=== PATIENT | female | born 1990 | race Caucasian/White ===

== ENCOUNTER 2018-12-27 17:17 | Emergency (ER) | payer BC, MEDICAID, OTHER ==
[2018-12-27] MEDS ORDERED: Ketorolac 60 MG/2 ML SDV IM ONE (17:41)
[2018-12-27] MEDS ORDERED: SUMAtriptan 6 MG/0.5 ML SDV SUBCUT ONE (18:19)
--- NOTE | 2018-12-27 18:21 | EDM.PDOC ---
ED HPI GENERAL MEDICAL PROBLEM - General Stated Complaint: POST CONCUSION HEADACH, FAINTED Time Seen by Provider: 12/27/18 17:17 Source of Information: Reports: Patient History Limitations: Reports: No Limitations - History of Present Illness INITIAL COMMENTS - FREE TEXT/NARRATIVE: 28 h.o.w.f with bipolar disorder came to the ED with a friend to the ed because of bilt temp headache, Photophobia and neck pain. Pt denies trauma. She is currently withe her in an off/on relation ship. She works during the day and is not able to sleep at night. All day long, she drinks energy drinks to keep her awake at work. Pt denies any trauma. Pt has seen a psychiatrist in the past but did not F/U for a while and did not not the the meds recommended. No N/V/D no dizziness. No other acute med issues. BP 140/94 RR 16 Pulse ox 100 % Pulse 112 Temp 36.4 Onset Date: 12/27/18 Onset Time: 08:00 Duration: Week(s):, Intermittent Location: Reports: Generalized Quality: Reports: Dull, Same as Previous Episode Severity: Moderate Improves with: Reports: Medication Worsens with: Reports: Other (stress) Context: Reports: Other (H/O bipolar disorder. 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: , 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 Psychiatric History: Reports: Anxiety, Depression Other Psychiatric History: dx at the age of 14/15 - Infectious Disease History Infectious Disease History: Reports: Chicken Pox - Past Surgical History Head Surgeries/Procedures: Reports: None HEENT Surgical History: Reports: None Female Surgical History: Reports: None Social & Family History - Family History Family Medical History: Noncontributory Cardiac: Reports: Other (See Below) Other Cardiac Family History: Stroke Respiratory: Reports: Asthma OBGYN: Reports: Oncologic: Reports: Other (See Below) Other Oncologic Family History: unk cancer - Caffeine Use Caffeine Use: Reports: Soda ED ROS GENERAL - Review of Systems Review Of Systems: See Below Constitutional: Reports: No Symptoms HEENT: Reports: No Symptoms Respiratory: Reports: No Symptoms Cardiovascular: Reports: No Symptoms Endocrine: Reports: No Symptoms GI/Abdominal: Reports: No Symptoms : Reports: No Symptoms Musculoskeletal: Reports: Neck Pain, Muscle Pain Skin: Reports: No Symptoms Neurological: Reports: Headache, Other (photophobia) Psychiatric: Reports: Anxiety, Depression Hematologic/Lymphatic: Reports: No Symptoms Immunologic: Reports: No Symptoms - Physical Exam Exam: See Below Exam Limited By: No Limitations General Appearance: Alert, WD/WN, Anxious, Mild Distress Eye Exam: Bilateral Eye: Normal Inspection Ears: Normal External Exam Nose: Normal Inspection, Normal Mucosa Throat/Mouth: Normal Inspection, Normal Lips, Normal Voice, No Airway Compromise Head Exam: Atraumatic, Normocephalic Neck: Normal Inspection, Supple, Non-Tender, Full Range of Motion Respiratory/Chest: No Respiratory Distress, Lungs Clear, Normal Breath Sounds Cardiovascular: Normal Peripheral Pulses, Regular Rate, Rhythm, No Edema, No Gallop GI/Abdominal: Normal Bowel Sounds, Soft, Non-Tender, No Organomegaly, No Abnormal Bruit, No Mass, Pelvis Stable (Female) Exam: Deferred Rectal (Female) Exam: Deferred Neuro Exam (Abbreviated): Alert, Oriented, CN II-XII Intact, Normal Cognition, Normal Gait, No Motor/Sensory Deficits Back Exam: Normal Inspection, Full Range of Motion Extremities: Normal Inspection, Normal Range of Motion, Non-Tender, Normal Capillary Refill Psychiatric: Anxious, Depressed Mood, Tearful Skin Exam: Warm, Dry, Intact, Normal Color, No Rash Course - Vital Signs Text/Narrative:: 28 h.o.w.f with bipolar disorder came to the ED with a friend to the ed because of bilt temp headache, Photophobia and neck pain. Pt denies trauma. She is currently withe her in an off/on relation ship. She works during the day and is not able to sleep at night. All day long, she drinks energy drinks to keep her awake at work. Pt denies any trauma. Pt has seen a psychiatrist in the past but did not F/U for a while and did not not the the meds recommended. No N/V/D no dizziness. No other acute med issues. BP 140/94 RR 16 Pulse ox 100 % Pulse 112 Temp 36.4 28 y.o.Pt Bipolar patient, neck pain and H/A worst ever, mentioned she has suicidal ideation as well Imaging: CT neck: Reverse lordosis. CT head: NAD as per RAD Labs: BMP neg UA neg UDS neg Impression: Tension H/A, neck sprain, H/O Bipolar disorder Tx: Imitrex, Norflex, pt took Motrin INFORMATION ARCHITECT 7.52 pm Consultation: [facility] tele psych: Anxiety and depression, Not suicidal, can stay with a friend tonight, should F/U with a local Psych service in AM Reexam: Pt improved, feels ready to go home with her friend in the Waiting room. Plan: D/C with instructions Last Recorded V/S: Last Vital Signs Temp 36.7 C 12/27/18 19:58 Pulse 78 12/27/18 20:42 Resp 18 12/27/18 20:42 BP 113/83 12/27/18 20:42 Pulse Ox 100 12/27/18 20:42 - Orders/Labs/Meds Orders: Active Orders 24 hr Category Date Time Status Cervical Spine wo Cont [CT] Stat Exams 12/27/18 17:40 Taken Head wo Cont [CT] Stat Exams 12/27/18 17:40 Taken Labs: Laboratory Tests 12/27/18 12/27/18 12/27/18 Range/Units 17:56 17:56 17:56 Sodium (135-145) mmol/L Potassium (3.5-5.3) mmol/L Chloride (100-110) mmol/L Carbon Dioxide (21-32) mmol/L BUN (7-18) mg/dL Creatinine (0.55-1.02) mg/dL Est Cr Clr Drug Dosing Estimated GFR (MDRD) (>60) BUN/Creatinine Ratio (9-20) Glucose (80-116) mg/dL Calcium (8.6-10.2) mg/dL Magnesium (1.8-2.5) mg/dL Urine Color Yellow (YELLOW) Urine Appearance Clear (CLEAR) Urine pH 5.0 (5.0-6.5) Ur Specific [place] 1.005 L (1.010-1.025) Urine Protein Negative (NEGATIVE) mg/dL Urine Glucose (UA) Normal (NORMAL) mg/dL Urine Ketones Negative (NEGATIVE) mg/dL Urine Occult Blood Negative (NEGATIVE) Urine Nitrite Negative (NEGATIVE) Urine Bilirubin Negative (NEGATIVE) Urine Urobilinogen Normal (NEGATIVE) mg/dL Ur Leukocyte Esterase Negative (NEGATIVE) Urine RBC 0-5 (0-5) Urine WBC 0-5 (0-5) Ur Squamous Epith Cells Occasional (NS,R,O) Urine Bacteria Few H (NS) Urine HCG, Qual Negative (NEGATIVE) Salicylates (<2.8) mg/dL Urine Opiates Screen Negative (NEGATIVE) Ur Oxycodone Screen Negative (NEGATIVE) Ur Propoxyphene Screen Negative (NEGATIVE) Acetaminophen (<2) ug/mL Ur Barbituates Screen Negative (NEGATIVE) Ur Tricyclics Screen Negative (NEGATIVE) Ur Phencyclidine Scrn Negative (NEGATIVE) Ur Amphetamine Screen Negative (NEGATIVE) Urine MDMA Screen Negative (NEGATIVE) U Benzodiazepines Scrn Negative (NEGATIVE) U Cocaine Metab Screen Negative (NEGATIVE) U Marijuana (THC) Screen Negative (NEGATIVE) Ethyl Alcohol (<0.03) % 12/27/18 12/27/18 12/27/18 Range/Units 18:32 18:32 18:32 Sodium 139 (135-145) mmol/L Potassium 3.8 (3.5-5.3) mmol/L Chloride 103 (100-110) mmol/L Carbon Dioxide 27 (21-32) mmol/L BUN 12 (7-18) mg/dL Creatinine 0.9 (0.55-1.02) mg/dL Est Cr Clr Drug Dosing TNP Estimated GFR (MDRD) > 60 (>60) BUN/Creatinine Ratio 13.3 (9-20) Glucose 82 (80-116) mg/dL Calcium 9.1 (8.6-10.2) mg/dL Magnesium (1.8-2.5) mg/dL Urine Color (YELLOW) Urine Appearance (CLEAR) Urine pH (5.0-6.5) Ur Specific [place] (1.010-1.025) Urine Protein (NEGATIVE) mg/dL Urine Glucose (UA) (NORMAL) mg/dL Urine Ketones (NEGATIVE) mg/dL Urine Occult Blood (NEGATIVE) Urine Nitrite (NEGATIVE) Urine Bilirubin (NEGATIVE) Urine Urobilinogen (NEGATIVE) mg/dL Ur Leukocyte Esterase (NEGATIVE) Urine RBC (0-5) Urine WBC (0-5) Ur Squamous Epith Cells (NS,R,O) Urine Bacteria (NS) Urine HCG, Qual (NEGATIVE) Salicylates 2.8 (<2.8) mg/dL Urine Opiates Screen (NEGATIVE) Ur Oxycodone Screen (NEGATIVE) Ur Propoxyphene Screen (NEGATIVE) Acetaminophen < 2 L (<2) ug/mL Ur Barbituates Screen (NEGATIVE) Ur Tricyclics Screen (NEGATIVE) Ur Phencyclidine Scrn (NEGATIVE) Ur Amphetamine Screen (NEGATIVE) Urine MDMA Screen (NEGATIVE) U Benzodiazepines Scrn (NEGATIVE) U Cocaine Metab Screen (NEGATIVE) U Marijuana (THC) Screen (NEGATIVE) Ethyl Alcohol < 0.03 (<0.03) % 12/27/18 Range/Units 18:32 Sodium (135-145) mmol/L Potassium (3.5-5.3) mmol/L Chloride (100-110) mmol/L Carbon Dioxide (21-32) mmol/L BUN (7-18) mg/dL Creatinine (0.55-1.02) mg/dL Est Cr Clr Drug Dosing Estimated GFR (MDRD) (>60) BUN/Creatinine Ratio (9-20) Glucose (80-116) mg/dL Calcium (8.6-10.2) mg/dL Magnesium 2.1 (1.8-2.5) mg/dL Urine Color (YELLOW) Urine Appearance (CLEAR) Urine pH (5.0-6.5) Ur Specific [place] (1.010-1.025) Urine Protein (NEGATIVE) mg/dL Urine Glucose (UA) (NORMAL) mg/dL Urine Ketones (NEGATIVE) mg/dL Urine Occult Blood (NEGATIVE) Urine Nitrite (NEGATIVE) Urine Bilirubin (NEGATIVE) Urine Urobilinogen (NEGATIVE) mg/dL Ur Leukocyte Esterase (NEGATIVE) Urine RBC (0-5) Urine WBC (0-5) Ur Squamous Epith Cells (NS,R,O) Urine Bacteria (NS) Urine HCG, Qual (NEGATIVE) Salicylates (<2.8) mg/dL Urine Opiates Screen (NEGATIVE) Ur Oxycodone Screen (NEGATIVE) Ur Propoxyphene Screen (NEGATIVE) Acetaminophen (<2) ug/mL Ur Barbituates Screen (NEGATIVE) Ur Tricyclics Screen (NEGATIVE) Ur Phencyclidine Scrn (NEGATIVE) Ur Amphetamine Screen (NEGATIVE) Urine MDMA Screen (NEGATIVE) U Benzodiazepines Scrn (NEGATIVE) U Cocaine Metab Screen (NEGATIVE) U Marijuana (THC) Screen (NEGATIVE) Ethyl Alcohol (<0.03) % Meds: Medications Discontinued Medications Generic Name Dose Route Start Last Admin Trade Name Freq PRN Reason Stop Dose Admin Ketorolac Tromethamine 60 mg 12/27/18 17:41 12/27/18 18:20 Toradol IM 12/27/18 17:42 Not Given ONETIME ONE Orphenadrine Citrate 60 mg 12/27/18 18:52 12/27/18 19:31 Norflex IM 12/27/18 18:53 60 mg ONETIME STA Administration Sumatriptan Succinate 6 mg 12/27/18 18:19 12/27/18 18:24 Imitrex SUBCUT 12/27/18 18:20 6 mg ONETIME ONE Administration Departure - Departure Time of Disposition: 20:39 Disposition: Home, Self-Care 01 Condition: Good Clinical Impression: Tension headache Sprain, neck Qualifiers: Encounter type: subsequent encounter Qualified Code(s): S13.9XXD - Sprain of joints and ligaments of unspecified parts of neck, subsequent encounter - Discharge Information Prescriptions: Orphenadrine [Norflex] 100 mg PO BID PRN #16 tab PRN Reason: neck pain Instructions: Orphenadrine injection, Tension Headache, Adult Referrals: Kyler Matta MD [Primary Care Provider] - Forms: ED Return to Work/School Form Additional Instructions: Please f/u with your PMD in am in order to be referred to Neurologist, Take Norflex for neck spasm as recommended, Motrin 600 mg with food every 6 hours, please come back if your symptoms get worse acutely. [place] unit [phone] - My Orders Last 24 Hours: My Active Orders 12/27/18 17:40 Cervical Spine wo Cont [CT] Stat Head wo Cont [CT] Stat - Assessment/Plan Last 24 Hours: My Active Orders 12/27/18 17:40 Cervical Spine wo Cont [CT] Stat Head wo Cont [CT] Stat
[2018-12-27 18:55] LABS: ACETAMINOPHEN < 2 ug/mL (<2)
[2018-12-27 22:37] VITALS: BP 113/83
--- NOTE | 2018-12-28 11:13 | CT ---
INDICATION: Trauma, fall one week ago, temporal/frontal headache radiates to back of head, midline to right side neck pain. CT CERVICAL SPINE WITHOUT CONTRAST: Spiral 2.5 mm axial sections were obtained through the cervical spine with sagittal and coronal reconstructions, 12/27/18 - no comparisons. Total exam DLP = 293.08 mGy-cm. The odontoid, atlas, and axis appear to be intact. Vertebral body and disk heights were maintained. Reversal of normal cervical lordosis is noted of questionable significance, centered at C5. Bone density appeared normal. Prevertebral space appeared to be normal. IMPRESSION: No acute fracture or dislocation - reversal of normal cervical lordosis is noted of questionable significance. Report was called to Dr. Collado at 1846 hours on 12/27/18. [facility]
--- NOTE | 2018-12-28 11:14 | CT ---
INDICATION: Trauma, fall one week ago, temporal/frontal headache radiates to back of head. CT HEAD WITHOUT CONTRAST: Spiral examination of the brain was obtained with sagittal and coronal reconstructions, 12/27/18 - no comparisons. Total exam DLP = 1,244.99 mGy-cm. Paranasal sinuses and mastoid air cells appear well-aerated. No cranial fracture site was suggested. No shift of midline structures, ventricular abnormalities, or abnormal areas of density, including areas of hemorrhage or hematoma, could be identified. IMPRESSION: Normal CT brain, no acute intracranial abnormality. Report was called to Dr. Collado at 1846 hours on 12/27/18. [facility]
== END 2018-12-27 21:00 | disposition home or self-care (01) ==
LOC: FB.ED 17:17
DX: G44.209 Tension-type headache, unspecified, not intractable (principal); S13.9XXD Sprain of joints and ligaments of unspecified parts of neck, subsequent encounter; F31.9 Bipolar disorder, unspecified; Z79.899 Other long term (current) drug therapy; X58.XXXD Exposure to other specified factors, subsequent encounter
CPT/HCPCS: 36415; 70450; 72125; 80048; 80305; 81001; 81025; 83735; 96372; 99284; G0480; J2360; J3030

== ENCOUNTER 2019-11-02 00:10 | Emergency (ER) | payer BC ==
[2019-11-02] MEDS ORDERED: Lidocaine 2% 20 ML MDV INFILT ONE (00:11)
[2019-11-02 00:25] VITALS: BP 117/79; PULSE 96
[2019-11-02] MEDS ORDERED: Lidocaine/Prilocaine 2.5-2.5% Crm 5 GM Tube TOP ONE (00:44)
[2019-11-02] MEDS ORDERED: Diphtheria,Pertussis(Acell),Tetanus Vaccine 0.5 ML SDV IM ONE (00:47)
[2019-11-02] MEDS ORDERED: Lidocaine 2% Viscous Solution 15 ML Cup PO ONE (00:51)
[2019-11-02] MEDS ORDERED: cefTRIAXone 1 GM Vial IM ONE (01:16)
--- NOTE | 2019-11-02 01:23 | EDM.PDOC ---
ED HPI GENERAL MEDICAL PROBLEM - General Chief Complaint: Laceration Stated Complaint: CUT Time Seen by Provider: 11/02/19 00:17 Source of Information: Reports: Patient History Limitations: Reports: No Limitations - History of Present Illness INITIAL COMMENTS - FREE TEXT/NARRATIVE: pt is intoxicated , tripped and fell sustained brush burgos to the right side of her fac , lower jaw, right cheek and right kne , also hit her jaw causing her to have toothache in the area of a diseased tooth , Lower jaw mildly swollen has laceration to the chin , and elbow . Onset: Today Onset Date: 11/01/19 Duration: Hour(s): (1), Getting Worse Location: Reports: Face (right cheek, chin and right knee abrasions, brush burgos ) Quality: Reports: Ache, Dull Severity: Moderate Improves with: Reports: Cold Therapy Worsens with: Reports: Movement Context: Reports: Trauma (fell outside) Associated Symptoms: Reports: No Other Symptoms right lower tooth, knee, chin Pain Score (Numeric/FACES): 8 - Related Data Allergies Allergy/AdvReac Type Severity Reaction Status Date / Time No Known Allergies Allergy Verified 12/27/18 19:45 Home Meds: Home Meds Orphenadrine [Norflex] 100 mg PO BID PRN #16 tab 12/27/18 [Rx] Cephalexin [Keflex] 500 mg PO TID #15 capsule 11/02/19 [Rx] Mupirocin Oint [Bactroban Oint] 22 gm .XX BID #1 tube 11/02/19 [Rx] Past Medical History - Past Health History Medical/Surgical History: Denies Medical/Surgical History HEENT History: Reports: Impaired Vision Other HEENT History: wears corrective lenses Genitourinary History: Reports: UTI, Recurrent [employer]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: , 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 Psychiatric History: Reports: Anxiety, Depression, Suicide Attempt Other Psychiatric History: dx at the age of 14/15 - Infectious Disease History Infectious Disease History: Reports: Chicken Pox - Past Surgical History Head Surgeries/Procedures: Reports: None HEENT Surgical History: Reports: None Female Surgical History: Reports: None Social & Family History - Family History Family Medical History: Noncontributory Cardiac: Reports: Other (See Below) Other Cardiac Family History: Stroke Respiratory: Reports: Asthma OBGYN: Reports: Oncologic: Reports: Other (See Below) Other Oncologic Family History: unk cancer - Tobacco Use Smoking Status *Q: Current Every Day Smoker Years of Tobacco use: 20 Packs/Tins Daily: 1 - Caffeine Use Caffeine Use: Reports: Coffee, Energy Drinks, Soda - Recreational Drug Use Recreational Drug Use: Yes Recreational Drug Type: Reports: Marijuana/Hashish ED ROS GENERAL - Review of Systems Review Of Systems: Comprehensive ROS is negative, except as noted in HPI. Constitutional: Reports: Weakness HEENT: Reports: Dental Pain Respiratory: Reports: No Symptoms Cardiovascular: Reports: No Symptoms Endocrine: Reports: No Symptoms GI/Abdominal: Reports: No Symptoms : Reports: No Symptoms Musculoskeletal: Reports: Shoulder Pain Skin: Reports: Bruising, Wound ED EXAM, SKIN/RASH Exam: See Below Exam Limited By: Intoxication General Appearance: Alert, WD/WN, No Apparent Distress Eye Exam: Bilateral Eye: EOMI Ears: Normal External Exam Nose: Normal Inspection Throat/Mouth: Other (left lower teeth cracked and painful , swollen) Head: Other (swelling right lower jaw , tender ) Neck: Supple, Non-Tender Respiratory/Chest: No Respiratory Distress, Lungs Clear, Normal Breath Sounds Cardiovascular: Regular Rate, Rhythm GI/Abdominal: Soft, Non-Tender Back Exam: Full Range of Motion Extremities: Normal Inspection, Normal Range of Motion Neurological: Alert, CN II-XII Intact, Other (intoxicated) Psychiatric: Normal Affect, Normal Mood Skin: Warm, Wound/Incision, Other (multiple abrasion : right cheek , right chin , right knee) Associated features: Weeping Lymphatic: No Adenopathy ED SKIN PROCEDURES - Laceration/Wound Repair Lower Face Appearance: Superficial, Stellate, Irregular, Mildly Contaminated Anesthetic Type: Local Local Anesthesia - Lidocaine (Xylocaine): 2% Plain Local Anesthetic Volume: 5cc Skin Prep: Chlorhexidine (Hibiciens), Saline, Sterile Drape Saline Irrigation (cc's): 10 Exploration/Debridement/Repair: Wound Explored, No Foreign Material Found, Multiple Flaps Aligned Closed with: Sutures Lac/Wound length In cm: 3 Suture Size: 5-0 # of Sutures: 5 Suture Type: Simple, Other (ethilon) Sterile Dressing Applied: Nurse Tetanus Status Addressed: Yes Complications: No Progress/Comments: laceration sutured, tolerated this well Course - Vital Signs Last Recorded V/S: Last Vital Signs Temp 36.5 C 11/02/19 00:10 Pulse 96 11/02/19 00:10 Resp 16 11/02/19 00:10 BP 117/79 11/02/19 00:10 Pulse Ox 99 11/02/19 00:10 - Orders/Labs/Meds Orders: Active Orders 24 hr Category Date Time Status Vaccines to be Administered [RC] PER UNIT ROUTINE Care 11/02/19 00:47 Active cefTRIAXone [Rocephin] Med 11/02/19 01:16 Once 1 gm IM ONETIME ONE Meds: Medications Discontinued Medications Generic Name Dose Route Start Last Admin Trade Name Frefabby PRN Reason Stop Dose Admin Diphtheria/Tetanus/Acell Pertussis 0.5 ml 11/02/19 00:47 11/02/19 00:52 Adacel IM 11/02/19 00:48 0.5 ml .ONCE ONE Administration Lidocaine HCl 15 ml 11/02/19 00:51 11/02/19 00:54 Xylocaine 2% Viscous PO 11/02/19 00:52 15 ml ONETIME ONE Administration Lidocaine/Prilocaine 5 gm 11/02/19 00:44 11/02/19 00:53 [facility]a [facility] 11/02/19 00:45 1 applic ONETIME ONE Administration - Re-Assessments/Exams Free Text/Narrative Re-Assessment/Exam: 11/02/19 01:30 laceration of the chin repaired lidocaine gel applied to the areas of abrasion after cleaning of the wounds Departure - Departure Time of Disposition: 01:25 Disposition: Home, Self-Care 01 Condition: Fair Clinical Impression: Laceration of chin without complication, Fall, Abrasions of multiple sites - Discharge Information *PRESCRIPTION DRUG MONITORING PROGRAM REVIEWED*: Not Applicable *COPY OF PRESCRIPTION DRUG MONITORING REPORT IN PATIENT ALBERTO: Not Applicable Instructions: Laceration Care, Adult, [id number], Sutured Wound Care, Easy-to -Read Referrals: PCP,None [Primary Care Provider] - Additional Instructions: 1) keep wound clean and dry 2) Suture removal in 5 days 3) Topical ointment to the knee 4) See dentist for any dental concerns Sepsis Event Note - Evaluation Sepsis Screening Result: No Definite Risk - Focused Exam Vital Signs: Vital Signs Temp Pulse Resp BP Pulse Ox 11/02/19 00:10 36.5 C 96 16 117/79 99 Date Exam was Performed: 11/02/19 Time Exam was Performed: 01:17 - My Orders Last 24 Hours: My Active Orders 11/02/19 00:47 Vaccines to be Administered [RC] PER UNIT ROUTINE 11/02/19 01:16 cefTRIAXone [Rocephin] 1 gm IM ONETIME ONE - Assessment/Plan Last 24 Hours: My Active Orders 11/02/19 00:47 Vaccines to be Administered [RC] PER UNIT ROUTINE 11/02/19 01:16 cefTRIAXone [Rocephin] 1 gm IM ONETIME ONE
== END 2019-11-02 01:30 | disposition home or self-care (01) ==
LOC: FB.ED 00:10
DX: S01.81XA Laceration without foreign body of other part of head, initial encounter (principal); S80.211A Abrasion, right knee, initial encounter; F17.210 Nicotine dependence, cigarettes, uncomplicated; Z23 Encounter for immunization; W01.0XXA Fall on same level from slipping, tripping and stumbling without subsequent striking against object, initial encounter
CPT/HCPCS: 12013; 90471; 90715; 96372; 99282; A9270; J0696; J2001

== ENCOUNTER 2023-01-04 16:57 | Emergency (ER) | payer BC ==
[2023-01-04 17:16] VITALS: BP 139/84; PULSE 64
[2023-01-04 17:59] LABS: BASOPHILS PERCENT AUTO 0.6 % (0.2-1.5); BLOOD UREA NITROGEN,BUN 15 mg/dL (7-18); BUN/CREATININE RATIO 18.8 (9-20); CALCIUM 9.1 mg/dL (8.6-10.2); CARBON DIOXIDE,CO2 28 mmol/L (21-32); CHLORIDE,CL 103 mmol/L (100-110); CREATININE 0.8 mg/dL (0.55-1.02); EOSINOPHILS ABSOLUTE AUTO 0.2 x10-3/uL (0.0-0.8); EOSINOPHILS PERCENT AUTO 2.8 % (0.6-8.1); EST CRCL DRUG DOSING (CG) 94.51 mL/min; ESTIMATED GFR 100 mL/min (>60); GLUCOSE RANDOM 101 mg/dL (80-116); HEMATOCRIT 36.4 % (34.2-48.2); HEMOGLOBIN 12.2 g/dL (11.4-15.5); LYMPHOCYTES ABSOLUTE AUTO 1.7 x10-3/uL (1.0-4.4); LYMPHOCYTES PERCENT AUTO 28.2 % (18.4-52.1); MEAN CORPUSCULAR HEMOGLOBIN 30.6 pg (23.9-33.9); MEAN CORPUSCULAR HGB CONC 33.6 g/dL (31.9-34.8); MEAN CORPUSCULAR VOLUME 91.1 fL (76.7-100.5); MEAN PLATELET VOLUME 9.1 fL (7.1-12.4); MONOCYTES ABSOLUTE AUTO 0.5 x10-3/uL (0.3-1.0); MONOCYTES PERCENT AUTO 7.7 % (4.4-15.7); NEUTROPHILS ABSOLUTE AUTO 3.7 x10-3/uL (1.5-6.3); NEUTROPHILS PERCENT AUTO 60.7 % (30.8-76.2); PLATELET COUNT,PLT 310 x10(3)uL (151-488); POTASSIUM,K 3.8 mmol/L (3.5-5.3); SODIUM,NA 139 mmol/L (135-145); WHITE BLOOD CELL COUNT,WBC 6.1 x10-3/uL (3.0-10.3)
[2023-01-04 18:05] LABS: A/G RATIO 1.1; ALANINE AMINOTRANSFERASE,ALT 34 U/L (12-36); ALBUMIN 3.7 g/dL (3.5-5.2); ALKALINE PHOSPHATASE 75 IU/L (56-112); ASPARTATE AMNIOTRANSFERASE,AST 22 IU/L (5-25); BILIRUBIN TOTAL 0.2 mg/dL (0.1-1.3); PROTEIN TOTAL,TP 7.1 g/dL (6.0-8.0)
== END 2023-01-04 18:41 | disposition home or self-care (01) ==
LOC: FB.ED 16:57
DX: R07.89 Other chest pain (principal); F43.9 Reaction to severe stress, unspecified
CPT/HCPCS: 36415; 80053; 84484; 85025; 85379; 87651-QW; 93005; 99285